=== PATIENT | male | born 1990 | race African-American/Black ===

== ENCOUNTER 2019-02-24 13:24 | Emergency (ER) | payer OTHER ==
[~2019-02-24] VITALS: Ht 182.9 cm; Wt 81.8 kg
[2019-02-24 13:36] VITALS: BP 119/70
== END 2019-02-24 14:37 | disposition home or self-care (01) ==
LOC: EMS 13:25
DX: L90.5 Scar conditions and fibrosis of skin (principal)

== ENCOUNTER 2023-05-19 07:32 | Emergency (ER) | payer OTHER ==
[~2023-05-19] VITALS: Ht 185.4 cm; Wt 81.8 kg
[2023-05-19 07:33] VITALS: BP 133/80; PULSE 84; RESP 18; TEMP 98.2
[2023-05-19] MEDS ORDERED: MULT-1377 PO (07:35)
[2023-05-19] MEDS ORDERED: AMOX TR/POT CLAV 875 MG/125 MG TABLET PO ONE (07:45)
[2023-05-19] MEDS ORDERED: IBUPROFEN 600 MG TABLET PO ONE (07:45)
[2023-05-19] MEDS ORDERED: IBUP-1492 PO (07:47)
[2023-05-19] MEDS ORDERED: AMOX1TAB16 PO (07:47)
== END 2023-05-19 08:02 | disposition home or self-care (01) ==
LOC: EMS 07:40
DX: K08.89 Other specified disorders of teeth and supporting structures (principal)
CPT/HCPCS: 99283